=== PATIENT | female | born 1955 | race Caucasian/White ===

== ENCOUNTER → 2020-09-09 10:42 | Outpatient (BNVA) | payer SELFPAY | PROVIDERS: Family Provider Family Medicine; PCP Family Medicine; Visit Provider Emergency Medicine | DX: R11.0 Nausea (principal); U07.1 COVID-19; R05 Cough | CPT/HCPCS: 71046 ==

== ENCOUNTER → 2020-09-10 12:56 | Outpatient (BNVA) | payer OTHER, SELFPAY | PROVIDERS: Family Provider Family Medicine; PCP Family Medicine; Visit Provider Emergency Medicine | DX: U07.1 COVID-19 (principal); J18.9 Pneumonia, unspecified organism; Z20.822 Contact with and (suspected) exposure to COVID-19 | CPT/HCPCS: 71046 ==

== ENCOUNTER 2020-09-10 20:48 | Emergency (ER) | payer OTHER, SELFPAY ==
[2020-09-10 21:22] VITALS: BP 108/66; PULSE 78; RESP 18; TEMP 37.4; O2SAT 94; BMI 25.7
[2020-09-10 21:27] VITALS: BP 125/68; PULSE 64; RESP 16; O2SAT 93
--- NOTE | 2020-09-10 22:03 | ECG_ITS ---
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 Measurements Intervals [place] Rate: 66 P: 55 MN: 178 QRS: 11 QRSD: 79 T: 32 QT: 411 QTc: 433 Interpretive Statements SINUS RHYTHM No previous ECG available for comparison Electronically Signed On 09-11-2020 18:57:19 CDT by Iqra Balderas M.D. [id number]
[2020-09-10] MEDS: acetaminophen 325 mg Tablet 650 MG PO (22:13)
[2020-09-10 22:27] VITALS: O2SAT 98
[2020-09-10 22:28] VITALS: O2SAT 91; O2SAT 94
[2020-09-10 22:31] LABS: Basophils % 0.2 %; Hematocrit 36.5 % (37.0-47.0); Hemoglobin 11.7 g/dL (11.5-15.3); Lymphocytes # 0.6 10^3/uL (0.8-4.8); Lymphocytes % 10.6 %; Mean Corpuscular HGB Conc 32.1 g/dL (30.0-36.0); Mean Corpuscular Hemoglobin 28.1 pg (28.0-34.0); Mean Corpuscular Volume 87.7 fL (81-99); Mean Platelet Volume 10.5 fL (7.4-10.4); Monocytes # 0.3 10^3/uL (0.2-0.9); Monocytes % 6.5 %; Neutrophils # 4.25 10^3/uL (1.8-7.7); Neutrophils % 81.7 %; Nucleated Red Blood Cells % 0 %; Platelet Count 335 10^3/cmm (130-400); Red Blood Count 4.16 10^6/uL (4.1-5.3); Red Cell Distribution Width 14.1 % (12.1-15.1); White Blood Count 5.2 10^3/uL (4.0-10.0)
[2020-09-10 22:54] LABS: Troponin(5th) Baseline 7 ng/L (0-10)
[2020-09-10 22:55] LABS: Lactate (Lactic Acid level) 1.3 mmol/L (0.5-2.2)
[2020-09-10 23:13] LABS: Alanine Aminotransferase 27 U/L (0-33); Albumin Level 3.7 g/dL (3.5-5.2); Alkaline Phosphatase 112 IU/L (35-105); Anion Gap 16.5 (5-19); Aspartate Amino Transferase 28 U/L (0-32); Blood Urea Nitrogen 7 mg/dL (8-23); Calcium 8.4 mg/dL (8.5-10.5); Carbon Dioxide 23 mmol/L (22-29); Chloride 107 mmol/L (98-107); Globulin 2.4 g/dL (1.3-4.6); Glomerular Filtration Rate 160.7 mL/min (90-130); Glucose 126 mg/dL (65-115); Osmolality Calculated 294 mOsm/kg (285-295); Potassium 4.5 mmol/L (3.5-5.1); Sodium 142 mmol/L (136-145); Total Bilirubin 0.3 mg/dL (0.15-1.2); Total Protein 6.1 g/dL (6.6-8.7)
[2020-09-10 23:21] LABS: Add Urine Microscopic? NO; Charge for UA Resulting for Rev
[2020-09-10 23:33] LABS: Bilirubin Urine Neg (Negative); Blood Urine Neg (Negative); Glucose Urine UA Norm (Normal); Ketones Urine Negative (Negative); Leukocyte Esterase Urine Negative (Negative); Nitrate Urine Negative (Negative); Protein Urine Neg (Negative); Specific Gravity, Urine 1.005 (1.005-1.030); Urine Appearance Clear (CLEAR); Urine Color Yellow (Yellow); Urobilinogen Urine Norm (Negative); pH Urine 7 (5-7)
--- NOTE | 2020-09-11 00:31 | ED_ITS ---
HPI - COVID General: Chief Complaint: COVID symptoms Stated Complaint: COVID POSITIVE Time Seen by Provider: 09/10/20 21:44 Triage information: Has fever, cough or shortness of breath . Exposure to COVID + person last 14 days History of Present Illness: HPI Narrative: The patient is a 65-year-old female tested positive for Covid 10 days ago and this is her 11th day of symptoms. She comes to the ER from an urgent care center after she was seen there 2 days in a row and had a chest x-ray which appeared to be worsening. The note says she was given 1.5 L of fluids which improved her blood pressure and sent to the ER. Family immediately upon arrival says they would like oxygen and discharge. Patient and family have been using pulse oximeter at home which they noted a couple times were in the mid 80s on room air. Most of the time they say her oxygen saturation is in the mid 90s or slightly lower 90s. The patient does admit some mild shortness of breath and has slightly elevated temperature. She does have albuterol at home and has been given levofloxacin and prednisone as well by the urgent care facility however she is only taken 1 or 2 doses of these and they have not had a chance to start working. She is able to get around okay and admits that with her illness she is not eating and drinking as well but will try to do so in the future. complaint: known COVID positive Prior covid testing: yes, results known COVID 19 common symptoms: positive chills, non-productive cough, dyspnea, fatig ue, body aches, headache(s) and loss of sense of smell and/or taste; negative throat pain, nasal congestion or diarrhea COVID 19 other sytmptoms: negative chest pain Onset (ago): day(s) (11) Severity: moderate COVID Results: Nasal/Oral Coronavirus 2019 PCR Pending 09/10/20 12:55 09/10/20 Review of Systems General: Reports: 10 or more systems reviewed and unremarkable except in HPI and below Const: Reports: chills, body aches and fatigue Eyes: Denies: change in vision, blurry vision or eye redness ENMT: Denies: throat pain, swelling of lips/tongue, ear or mastoid pain or nasal congestion Card: Denies: chest pain, palpitations, irregular heart rhythm, edema, dyspnea on exertion or orthopnea Resp: Reports: dyspnea and non-productive cough GI: Denies: abdominal pain, diarrhea or GI cramping : Denies: flank pain, difficulty voiding, urinary frequency or urinary urgency Musc: Denies: neck pain, back pain, extremity pain, joint pain, joint redness, limited range of motion or muscle weakness Skin/Breast: Denies: rash, pruritus, erythema, skin pain or skin tenderness Neuro: Reports: headache(s) Psych: Denies: anxiety or depression Endo: Denies: polyuria All/Imm: Denies: urticaria, throat swelling or tongue swelling PFSH ED PFSH: Medical History COVID-19 Social History Smoking and tobacco status: never smoked Alcohol intake: never Female Reproductive History: Spontaneous abortions: No Physical Exam Const: COMMON NORMALS: no acute distress, average body habitus, patient oriented x3, no limitations, healthy appearing, alert and well nourished GENERAL APPEARANCE: cooperative, comfortable, well kempt and well developed ORIENTATION/CONSCIOUSNESS: Yes awake, Yes oriented to person, Yes oriented to place and Yes oriented to time HENMT: COMMON NORMALS: normocephalic, external ears normal and Normal external nose present HEAD & SCALP: normal to inspection and normocephalic NOSE: Normal external nose present EXTERNAL EAR: Yes external ears normal MOUTH: Normal oral and palatal mucosa present THROAT: posterior oropharynx normal Eye: COMMON NORMALS: Equal, round and reactive pupils present and EOMs intact bilaterally GENERAL EYE: appearance normal, both eyes and all related structures PUPIL: Yes Equal, round and reactive pupils present Neck/C-Spine: COMMON NORMALS: full ROM, no lymphadenopathy, no meningeal signs and no JVD GENERAL: Yes normal visual inspection Lymph: LYMPHATIC: no lymphadenopathy noted Chest: COMMONS NORMALS: normal inspection of the chest and normal palpation of entire chest wall Resp: COMMON NORMALS: normal respiratory effort, No retractions, No use of accessory muscles, clear to auscultation bilaterally and percussion normal EFFORT & INSPECTION: Yes able to speak in complete sentences AUSCULTATION: clear to auscultation bilaterally PERCUSSION: percussion normal Cardio: COMMON NORMALS: no JVD, regular rate, regular rhythm, S1 normal heart sound present, S2 normal heart sound present and Peripheral pulses 2+ throughout RATE: regular rate RHYTHM: regular rhythm HEART SOUNDS: S1 normal heart sound present and S2 normal heart sound present PERIPHERAL PULSES: Peripheral pulses 2+ throughout GI: COMMON NORMALS: Normal to inspection, nondistended, normoactive bowel sounds present, Soft to palpation, non-tender and no masses INSPECTION: Yes normal to inspection PALPATION: Yes Soft to palpation : COMMON NORMALS: Yes no CVA tenderness BLADDER/KIDNEY EXAM: Yes no CVA tenderness Back/Pelvis: COMMON NORMALS: no CVA tenderness, thoracic and lumbar spine normal to inspection, no thoracic nor lumbar tenderness and thoraco-lumbar ROM normal Extremity: COMMON NORMALS: normal to inspection, full ROM, capillary refill normal, no joint enlargement and no pedal edema GENERAL: Yes normal exam except as noted Neuro: COMMON NORMALS: patient oriented x3, CN's II-XII intact bilaterally, moves all extremities, no focal motor deficits, no sensory deficits noted and gait normal SENSORIUM/ORIENTATION: Yes alert, Yes oriented to person, Yes oriented to place and Yes oriented to time MENINGEAL SIGNS: Yes no meningeal signs Psych: COMMON NORMALS: mental status grossly normal, Normal thought process present, cooperative, normal affect and speech normal APPEARANCE: Yes well kempt ATTITUDE: Yes calm SPEECH: Yes normal speech THOUGHT PROCESS: Normal thought process present Skin: COMMON NORMALS: no rashes or lesions noted GENERAL SKIN EXAM: no rashes or lesions noted Course Vital Signs: Vital signs: Vital Signs Temperature 99.3 F 09/10/20 21:22 Pulse Rate 64 09/10/20 21:27 Respiratory Rate 16 09/10/20 21:27 Blood Pressure 125/68 09/10/20 21:27 Pulse Oximetry 94 09/10/20 22:28 MDM - COVID MDM Narrative: Medical decision making narrative: The patient is on her 11th day of symptoms and tested positive for Covid 10 days ago. She is doing well and satting 94% on room air. Home oxygen test she did not dip on her oxygen saturation however family did report that she had a couple episodes of satting in the mid 80s at home so I did order home oxygen for her. To wear 2 L [id number]. Family said they do not want her to wear it at all times of she does not need it. I recommended they check her pulse ox frequently and if it is 92 I recommended wearing oxygen if it is lower than that also wear oxygen. She should definitely wear it to sleep at night. Activity she should also definitely wear it. If she is resting and satting in the mid to upper 90s she may remove the oxygen. If she is ever short of breath or her symptoms worsen at any time she is to return to the ER. Follow-up with primary care physician in a couple days. Lab Data: Labs: Lab Results 09/10/20 09/10/20 09/10/20 Range/Units 22:22 22:22 22:22 WBC 5.2 (4.0-10.0) 10^3/ uL RBC 4.16 (4.1-5.3) 10^6/u L Hgb 11.7 (11.5-15.3) g/dL Hct 36.5 L (37.0-47.0) % MCV 87.7 (81-99) fL MCH 28.1 (28.0-34.0) pg MCHC 32.1 (30.0-36.0) g/dL RDW 14.1 (12.1-15.1) % Plt Count 335 (130-400) 10^3/c mm MPV 10.5 H (7.4-10.4) fL Neut % (Auto) 81.7 % Lymph % (Auto) 10.6 % [place] % (Auto) 6.5 % Eos % (Auto) 0.0 % Baso % (Auto) 0.2 % Neut # (Auto) 4.25 (1.8-7.7) 10^3/u L Lymph # (Auto) 0.6 L (0.8-4.8) 10^3/u L [place] # (Auto) 0.3 (0.2-0.9) 10^3/u L Eos # (Auto) 0.0 (0.0-0.8) 10^3/u L Baso # (Auto) 0.0 (0.0-0.1) 10^3/u L Nucleated RBC % (a uto) 0 % Nucleated RBCs # 0.0 /100WBC Sodium 142 (136-145) mmol/L Potassium 4.5 (3.5-5.1) mmol/L Chloride 107 (98-107) mmol/L Carbon Dioxide 23 (22-29) mmol/L Anion Gap 16.5 (5-19) BUN 7 L (8-23) mg/dL Creatinine 0.4 L (0.5-0.9) mg/dL GFR Calculation 160.7 H (90-130) mL/min Glucose 126 H (65-115) mg/dL Calculated Osmolal ity 294 (285-295) mOsm/k g Lactate 1.3 (0.5-2.2) mmol/L Calcium 8.4 L (8.5-10.5) mg/dL Total Bilirubin 0.3 (0.15-1.2) mg/dL AST 28 (0-32) U/L ALT 27 (0-33) U/L Alkaline Phosphata se 112 H (35-105) IU/L Troponin T Baselin e (0-10) ng/L Total Protein 6.1 L (6.6-8.7) g/dL Albumin 3.7 (3.5-5.2) g/dL Globulin 2.4 (1.3-4.6) g/dL Urine Color (Yellow) Urine Appearance (CLEAR) Urine pH (5-7) Ur Specific Gravit y (1.005-1.030) Urine Protein (Negative) Urine Glucose (UA) (Normal) Urine Ketones (Negative) Urine Blood (Negative) Urine Nitrate (Negative) Urine Bilirubin (Negative) Urine Urobilinogen (Negative) mg/dL Ur Leukocyte [place] (Negative) 09/10/20 09/10/20 Range/Units 22:22 23:11 WBC (4.0-10.0) 10^3/ uL RBC (4.1-5.3) 10^6/u L Hgb (11.5-15.3) g/dL Hct (37.0-47.0) % MCV (81-99) fL MCH (28.0-34.0) pg MCHC (30.0-36.0) g/dL RDW (12.1-15.1) % Plt Count (130-400) 10^3/c mm MPV (7.4-10.4) fL Neut % (Auto) % Lymph % (Auto) % [place] % (Auto) % Eos % (Auto) % Baso % (Auto) % Neut # (Auto) (1.8-7.7) 10^3/u L Lymph # (Auto) (0.8-4.8) 10^3/u L [place] # (Auto) (0.2-0.9) 10^3/u L Eos # (Auto) (0.0-0.8) 10^3/u L Baso # (Auto) (0.0-0.1) 10^3/u L Nucleated RBC % (a uto) % Nucleated RBCs # /100WBC Sodium (136-145) mmol/L Potassium (3.5-5.1) mmol/L Chloride (98-107) mmol/L Carbon Dioxide (22-29) mmol/L Anion Gap (5-19) BUN (8-23) mg/dL Creatinine (0.5-0.9) mg/dL GFR Calculation (90-130) mL/min Glucose (65-115) mg/dL Calculated Osmolal ity (285-295) mOsm/k g Lactate (0.5-2.2) mmol/L Calcium (8.5-10.5) mg/dL Total Bilirubin (0.15-1.2) mg/dL AST (0-32) U/L ALT (0-33) U/L Alkaline Phosphata se (35-105) IU/L Troponin T Baselin e 7 (0-10) ng/L Total Protein (6.6-8.7) g/dL Albumin (3.5-5.2) g/dL Globulin (1.3-4.6) g/dL Urine Color Yellow (Yellow) Urine Appearance Clear (CLEAR) Urine pH 7 (5-7) Ur Specific Gravit y 1.005 (1.005-1.030) Urine Protein Neg (Negative) Urine Glucose (UA) Norm (Normal) Urine Ketones Negative (Negative) Urine Blood Neg (Negative) Urine Nitrate Negative (Negative) Urine Bilirubin Neg (Negative) Urine Urobilinogen Norm (Negative) mg/dL Ur Leukocyte [place] Negative (Negative) COVID Results: Nasal/Oral Coronavirus 2019 PCR Pending 09/10/20 12:55 09/10/20 Discharge Plan Discharge Patient Disposition: Home Clinical Impression: COVID-19 Condition: Stable Prescriptions: No Action sertraline [Zoloft] 25 mg tablet 25 mg PO DAILY RF: 0 omeprazole 20 mg capsule,delayed release(DR/EC) 20 mg PO DAILY RF: 0 yblryjctcvtflyl-galqidbdv-BG [Bromfed DM] 2-30-10 mg/5 mL syrup 7.5 ml PO Q6H PRN (Reason: cold symptoms) Qty: 160 RF: 0 prednisone 10 mg tablet 30 mg PO DAILY 5 Days Qty: 15 RF: 0 ondansetron 4 mg tablet,disintegrating 4 mg PO Q6H PRN (Reason: nausea and vomiting) Qty: 12 RF: 0 levofloxacin 750 mg tablet 750 mg PO DAILY 10 Days Qty: 10 RF: 0 albuterol sulfate 2.5 mg /3 mL (0.083 %) solution for nebulization 2.5 mg inhalation Q6H Qty: 150 RF: 0 Discharge Orders: Discharge ED (Routine); Ordered 09/11/20 Ordered By: Genaro Leal Other Ambulatory Orders: DME: Oxygen (Order) Location: None Selected Ordered By: Genaro Leal Referrals: Maritza Serrano MD [Primary Care Provider] - Discharge Diet: Advance as tolerated Discharge Activity: Resume usual activity Patient Instructions: Opioid Safety, Upper Respiratory Infection - Adult Activity Restrictions/Additional Instructions: You have been suffering from Covid 19 virus infection and have had some episodes of hypoxia at home. Here your oxygen saturation has been reasonable though you may need oxygen at home. We are sending you home with an oxygen concentrator and should be worn at 2 L. Please use your finger pulse oximeter at home to monitor your oxygen saturation and try to keep it above 92. Make sure you wear it with any activity and during sleeping. If your oxygen saturation drops to the 80s or she feels short of breath or is working hard to breathe or has any other worrisome symptoms please return to the ER for further evaluation. Otherwise follow-up with primary care physician in a couple days to monitor improvement of her symptoms. Coding Level of Care Code ED National Sales Representative for [employer]
--- NOTE | 2020-09-12 11:34 | DCPLANNER ---
trucking manager had message to speak with patient about a telehealth visit. trucking manager called phone number [phone], unable to speak with patient at this time, a voicemail was left patient to return trimming caser phone call. Patient did return trimming caser phone call, she stated that she is feeling alright at this time and does not want to have a telehealth visit scheduled at this time. Patient stated that she would schedule an appointment if she felt that she needed one.
== END 2020-09-11 00:20 | disposition home or self-care (01) ==
PROVIDERS: Emergency Provider Family Medicine; PCP Family Medicine
DX: U07.1 COVID-19 (principal)
CPT/HCPCS: 80053; 81003; 83605; 84484; 85025; 87635; 93005; 99283

== ENCOUNTER → 2022-02-26 11:12 | Outpatient (BNVA) | payer MEDICARE, SELFPAY | PROVIDERS: PCP Family Medicine; Visit Provider Nurse Practitioner Family | DX: R05.9 Cough, unspecified (principal) | CPT/HCPCS: 87400 ==

== ENCOUNTER → 2022-03-11 10:53 | Outpatient (BNVA) | payer MEDICARE, SELFPAY | PROVIDERS: PCP Family Medicine; Visit Provider Nurse Practitioner Family | DX: R10.9 Unspecified abdominal pain (principal); R68.89 Other general symptoms and signs; I95.9 Hypotension, unspecified | CPT/HCPCS: 80053; 81000; 85025; 87086; 87400; 87426 ==

== ENCOUNTER 2022-03-12 19:15 | Emergency (ER) | payer MEDICARE, SELFPAY ==
[2022-03-12 19:21] VITALS: BP 103/71; PULSE 97; RESP 19; TEMP 36.8; O2SAT 99; BMI 27.3
--- NOTE | 2022-03-12 19:31 | W.ED.GENADLT ---
Documented by User: HEIKE Smith 03/12/22 22:53 HPI - General Adult General: Chief complaint: General Medical Stated complaint: sent by PCP N/V, left groin pain Time Seen by Provider: 03/12/22 19:33 History of Present Illness: Patient is in today for body aches, abdominal pain. Patient reports that she has been sick approximately a week and a half. She reports it started with the crud. She reports that she tested negative for flu and COVID. She reports that she has had body aches since that time. She reports fever initially but that has not been recent. She denies ever having urinary symptoms. She reports that she went to her PCP on Friday and was diagnosed with a right-sided ear infection. She reports that she was started on Cipro antibiotic. She reports that her blood pressure was low in her PCP office but she has a tendency to run a little bit low. Her PCP wanted to send her to the ER at that time however she did not want to go. She states that today she started having worse abdominal and back pain with a left groin pain. She continues to deny urinary symptoms. She reports her last bowel was yesterday and normal. She has been very nauseated but denies vomiting. Associated symptoms: Reports nausea; Deny chest pain, dyspnea, headache(s), palpitations or vomiting Review of Systems Const: Reports: chills and body aches; Denies: fever(s) ENMT: Reports: ear or mastoid pain (Right-sided ear pain) and tinnitus Card: Denies: chest pain or palpitations Resp: Denies: dyspnea, productive cough or non-productive cough GI: Reports: abdominal pain and nausea; Denies: vomiting, diarrhea or constipation Musc: Reports: other (Extreme body aches) Neuro: Reports: dizziness (States when her blood pressure is low or she moves her head quick); Denies: headache(s) or numbness in extremities PFSH ED PFSH: Medical History COVID-19 Surgical History No pertinent past surgical history Social History Smoking and tobacco status: former smoker Alcohol intake: never Female Reproductive History: Spontaneous abortions: No Physical Exam Const: COMMON NORMALS: no acute distress, patient oriented x3 and alert HENMT: TYMPANIC MEMBRANE: TM normal on the left and TM abnormal TM laterality: right Details: bulging and erythematous THROAT: posterior oropharynx normal and uvula midline Neck/C-Spine: COMMON NORMALS: no JVD Resp: COMMON NORMALS: normal respiratory effort, No use of accessory muscles and clear to auscultation bilaterally AUSCULTATION: clear to auscultation bilaterally Cardio: COMMON NORMALS: no JVD, regular rate, regular rhythm, S1 normal heart sound present and S2 normal heart sound present RATE: regular rate RHYTHM: regular rhythm HEART SOUNDS: S1 normal heart sound present and S2 normal heart sound present GI: COMMON NORMALS: Soft to palpation INSPECTION: Yes normal to inspection AUSCULTATION: Yes normoactive bowel sounds PALPATION: Yes Soft to palpation, Yes Tenderness to palpation present (GI) Details: RLQ and No Guarding due to palpation present (GI) : BLADDER/KIDNEY EXAM: Yes CVA tenderness (Mild right side) on the right EXTERNAL FEMALE EXAM: Yes Inguinal lymphadenopathy (Left-sided inguinal tenderness and slight lymphadenopathy) Back/Pelvis: GENERAL BACK: Yes CVA tenderness (Mild right side) Neuro: COMMON NORMALS: patient oriented x3, moves all extremities and no focal motor deficits SENSORIUM/ORIENTATION: Yes alert Course Vital Signs: Vital signs: Vital Signs Temperature 98.2 F 03/12/22 19:21 Pulse Rate 78 03/12/22 22:57 Respiratory Rate 18 03/12/22 22:57 Blood Pressure 127/85 03/12/22 22:57 Pulse Oximetry 97 03/12/22 22:57 Oxygen Delivery Me thod 03/12/22 19:21 MDM - General Adult Medical Decision Making Reviewed provider's note from yesterday diagnosed her with pyelonephritis, otitis media right ear, hypotension. Urine from yesterday only showed trace leuks with no nitrites. White blood cell count was normal yesterday. Patient vital signs are hypotensive systolic of 80s. Vital signs are stable upon arrival to the ER today. White blood cell count is normal. UA shows leuks negative nitrites negative blood. Differentials include renal stone, UTI, appendicitis, constipation Discussed results of labs and imaging with patient and daughter. I do not see any evidence of sepsis, renal stone. With a normal white blood cell count and no guarding or rebound tenderness to the right lower quadrant abdomen I have less suspicion for Appendicitis. I discussed this with the patient and her daughter and advised that without CT I cannot completely rule out an appendicitis however at this time it is likely that the stool seen on her KUB is the cause of her right lower quadrant abdominal pain. Patient then advised that she has a history of off-and-on constipation. We had a lengthy discussion about bowel management at home and increasing dietary fiber and water intake. Continue antibiotic as prescribed by the PCP previously. We did discuss the potential for Cipro to cause tendinitis and joint pain. Patient has complained of severe body aches but this was ongoing before she started the Cipro medication. Advised her that should her symptoms get worse she needs to be seen. We will discharge patient home in stable condition reporting that she is feeling significantly improved. Encouraged her to do [id number] treatment for constipation and encouraged dietary modifications. Continue follow-up with primary care provider. Return to the ER as needed for any new or worsening symptoms including, but not limited to, increasing or changing abdominal pain, inability to have a bowel movement despite kcwz-wpx-ngaiaub laxatives, fever development, inability to hold down p.o. liquids. Patient and daughter agreeable with plan of care and discharge. Lab Data 03/12/22 19:45 03/12/22 19:45 Radiology Impressions KUB X-Ray 03/12/22 20:29 IMPRESSION: 1. Negative for urinary calculus. 2. Constipation without bowel obstruction. Laboratory Results WBC 6.9 10^3/uL (4.0-10.0) 03/12/22 19:45 RBC 4.84 10^6/uL (4.1-5.3) 03/12/22 19:45 Hgb 13.7 g/dL (11.5-15.3) 03/12/22 19:45 Hct 43.1 % (37.0-47.0) 03/12/22 19:45 MCV 89.0 fl (81-99) 03/12/22 19:45 MCH 28.3 pg (28.0-34.0) 03/12/22 19:45 MCHC 31.8 g/dL (30.0-36.0) 03/12/22 19:45 RDW 13.5 % (12.1-15.1) 03/12/22 19:45 Plt Count 265 10^3/cmm (130-400) 03/12/22 19:45 MPV 11.3 fL (7.4-10.4) H 03/12/22 19:45 Neut % (Auto) 58.3 % 03/12/22 19:45 Lymph % (Auto) 33.4 % 03/12/22 19:45 Falls % (Auto) 5.4 % 03/12/22 19:45 Eos % (Auto) 2.0 % 03/12/22 19:45 Baso % (Auto) 0.6 % 03/12/22 19:45 Neut # (Auto) 3.99 10^3/uL (1.8-7.7) 03/12/22 19:45 Lymph # (Auto) 2.3 10^3/uL (0.8-4.8) 03/12/22 19:45 Falls # (Auto) 0.4 10^3/uL (0.2-0.9) 03/12/22 19:45 Eos # (Auto) 0.1 10^3/uL (0.0-0.8) 03/12/22 19:45 Baso # (Auto) 0.0 10^3/uL (0.0-0.1) 03/12/22 19:45 Nucleated RBC % (auto) 0 % 03/12/22 19:45 Nucleated RBCs # 0.0 /100WBC 03/12/22 19:45 Sodium 138 mmol/L (136-145) 03/12/22 19:45 Potassium 4.4 mmol/L (3.5-5.1) 03/12/22 19:45 Chloride 98 mmol/L (98-107) 03/12/22 19:45 Carbon Dioxide 28 mmol/L (22-29) 03/12/22 19:45 Anion Gap 16.4 (5-19) 03/12/22 19:45 BUN 17 mg/dL (8-23) 03/12/22 19:45 Creatinine 0.7 mg/dL (0.5-0.9) 03/12/22 19:45 GFR Calculation 84.0 mL/min (90-130) L 03/12/22 19:45 Glucose 117 mg/dL (65-115) H 03/12/22 19:45 Calculated Osmolality 289 mOsm/kg (285-295) 03/12/22 19:45 Lactic Acid 1.6 mmol/L (0.5-2.2) 03/12/22 19:45 Calcium 9.8 mg/dL (8.5-10.5) 03/12/22 19:45 Total Bilirubin 0.2 mg/dL (0.15-1.2) 03/12/22 19:45 AST 16 U/L (0-32) 03/12/22 19:45 ALT 13 U/L (0-33) 03/12/22 19:45 Alkaline Phosphatase 89 U/L (35-105) 03/12/22 19:45 Total Protein 7.7 g/dL (6.6-8.7) 03/12/22 19:45 Albumin 4.5 g/dL (3.5-5.2) 03/12/22 19:45 Globulin 3.2 g/dL (1.3-4.6) 03/12/22 19:45 Urine Color Light yellow (Yellow) 03/12/22 19:45 Urine Appearance Clear (CLEAR) 03/12/22 19:45 Urine pH 6 (5-7) 03/12/22 19:45 Ur Specific [place] 1.010 (1.005-1.030) 03/12/22 19:45 Urine Protein Neg (Negative) 03/12/22 19:45 Urine Glucose (UA) Norm (Normal) 03/12/22 19:45 Urine Ketones Negative (Negative) 03/12/22 19:45 Urine Blood Neg (Negative) 03/12/22 19:45 Urine Nitrate Negative (Negative) 03/12/22 19:45 Urine Bilirubin Neg (Negative) 03/12/22 19:45 Urine Urobilinogen Norm mg/dL (Negative) 03/12/22 19:45 Ur Leukocyte Esterase 1+ (Negative) H 03/12/22 19:45 Urine RBC 0-4 /hpf (0-2) H 03/12/22 19:45 Urine WBC 0-4 /hpf (0-5) H 03/12/22 19:45 Ur Squamous Epith Cells 0-4 /hpf (0-5) H 03/12/22 19:45 Amorphous Sediment Not Reportable 03/12/22 19:45 Urine Bacteria Trace /hpf (NONE) 03/12/22 19:45 Discharge Plan Discharge Patient Disposition: Home Clinical Impression: Abdominal pain, Constipation Condition: Stable Prescriptions: New ondansetron 4 mg tablet,disintegrating 4 mg PO Q8H PRN (Reason: nausea and vomiting) 3 Days Qty: 9 0RF No Action sertraline [Zoloft] 25 mg tablet 25 mg PO DAILY omeprazole 20 mg capsule,delayed release(DR/EC) 20 mg PO DAILY olopatadine [Pataday Twice Daily Relief] 0.1 % drops 1 drp ophthalmic (eye) BID Qty: 5 0RF Rx Instructions: separate doses by at least 6-8 hours hydroxyzine pamoate [Vistaril] 50 mg capsule 50 mg PO Q6H PRN (Reason: itching) Qty: 30 0RF dapsone 5 % gel 1 applic topical BID Qty: 60 0RF Rx Instructions: rub in gently and completely triamcinolone acetonide 0.1 % cream 1 applic topical BID Qty: 15 1RF fluticasone propionate 50 mcg/actuation spray,suspension 1 spray intranasal DAILY PRN (Reason: allergy symptoms) Qty: 16 0RF Rx Instructions: administer into each nostril fluconazole [Diflucan] 150 mg tablet 150 mg PO DAILY Qty: 2 0RF Rx Instructions: Take 1 tablet on day 1 and the second tablet 3 days later. ciprofloxacin HCl [Cipro] 500 mg tablet 500 mg PO BID 10 Days Qty: 20 0RF Zyrtec 10 mg capsule 10 mg PO DAILY PRN clobetasol 0.05 % ointment 1 applic topical BID 14 Days Qty: 45 1RF Rx Instructions: Apply to affected area no more than 2 weeks per month, not for face or skin folds metronidazole 0.75 % gel 1 applic topical BID Qty: 45 6RF dextromethorphan polistirex 30 mg/5 mL suspension,extended rel 12 hr 10 ml PO Q12H PRN (Reason: cough) Qty: 89 0RF Discharge Orders: Discharge ED (Routine); Ordered 03/12/22 Ordered By: Teressa Mckee Referrals: Maritza Serrano MD [Primary Care Provider] - Discharge Diet: Usual diet Discharge Activity: Resume usual activity Patient Instructions: Constipation (ED), Abdominal Pain (ED) Activity Restrictions/Additional Instructions: Make sure that you are staying well-hydrated at home. Use Zofran as needed as prescribed to help with nausea. Continue antibiotic as previously prescribed by primary care provider. I recommend cxzx-xru-kvlbmtn laxative to help evacuate stool and then increasing fiber and water in your diet to help prevent constipation. Follow-up with your primary care provider. Return to the ER as needed for new or worsening symptoms including, but not limited to, worsening abdominal pain, difficulty urinating or painful urination, fever, inability to keep down oral liquids, inability to have a bowel movement despite gzan-bms-wcujefa laxative. Coding Level of Care Code ED Healthcare Administrator for Chg Fwd Exam Comprehensive Documented by User: Reinaldo Michelle DO 03/14/22 06:20 HPI - General Adult General: Chief complaint: General Medical Stated complaint: sent by PCP N/V, left groin pain Time Seen by Provider: 03/12/22 19:33 [facility] ED PFSH: Medical History COVID-19 Surgical History No pertinent past surgical history Social History Smoking and tobacco status: former smoker Alcohol intake: never Course Vital Signs: Vital signs: Vital Signs Temperature 98.2 F 03/12/22 19:21 Pulse Rate 78 03/12/22 22:57 Respiratory Rate 18 03/12/22 22:57 Blood Pressure 127/85 03/12/22 22:57 Pulse Oximetry 97 03/12/22 22:57 Oxygen Delivery Me thod 03/12/22 19:21 MDM - General Adult Medical Decision Making Reviewed provider's note from yesterday diagnosed her with pyelonephritis, otitis media right ear, hypotension. Urine from yesterday only showed trace leuks with no nitrites. White blood cell count was normal yesterday. Patient vital signs are hypotensive systolic of 80s. Vital signs are stable upon arrival to the ER today. White blood cell count is normal. UA shows leuks negative nitrites negative blood. Differentials include renal stone, UTI, appendicitis, constipation Discussed results of labs and imaging with patient and daughter. I do not see any evidence of sepsis, renal stone. With a normal white blood cell count and no guarding or rebound tenderness to the right lower quadrant abdomen I have less suspicion for Appendicitis. I discussed this with the patient and her daughter and advised that without CT I cannot completely rule out an appendicitis however at this time it is likely that the stool seen on her KUB is the cause of her right lower quadrant abdominal pain. Patient then advised that she has a history of off-and-on constipation. We had a lengthy discussion about bowel management at home and increasing dietary fiber and water intake. Continue antibiotic as prescribed by the PCP previously. We did discuss the potential for Cipro to cause tendinitis and joint pain. Patient has complained of severe body aches but this was ongoing before she started the Cipro medication. Advised her that should her symptoms get worse she needs to be seen. We will discharge patient home in stable condition reporting that she is feeling significantly improved. Encouraged her to do pokm-njp-vzuqhij treatment for constipation and encouraged dietary modifications. Continue follow-up with primary care provider. Return to the ER as needed for any new or worsening symptoms including, but not limited to, increasing or changing abdominal pain, inability to have a bowel movement despite tdmr-anl-nnearoy laxatives, fever development, inability to hold down p.o. liquids. Patient and daughter agreeable with plan of care and discharge. Chart reviewed and patient discussed with midlevel. Agree with assessment and plan. Lab Data 03/12/22 19:45 03/12/22 19:45 Radiology Impressions KUB X-Ray 03/12/22 20:29 IMPRESSION: 1. Negative for urinary calculus. 2. Constipation without bowel obstruction. Laboratory Results WBC 6.9 10^3/uL (4.0-10.0) 03/12/22 19:45 RBC 4.84 10^6/uL (4.1-5.3) 03/12/22 19:45 Hgb 13.7 g/dL (11.5-15.3) 03/12/22 19:45 Hct 43.1 % (37.0-47.0) 03/12/22 19:45 MCV 89.0 fl (81-99) 03/12/22 19:45 MCH 28.3 pg (28.0-34.0) 03/12/22 19:45 MCHC 31.8 g/dL (30.0-36.0) 03/12/22 19:45 RDW 13.5 % (12.1-15.1) 03/12/22 19:45 Plt Count 265 10^3/cmm (130-400) 03/12/22 19:45 MPV 11.3 fL (7.4-10.4) H 03/12/22 19:45 Neut % (Auto) 58.3 % 03/12/22 19:45 Lymph % (Auto) 33.4 % 03/12/22 19:45 Falls % (Auto) 5.4 % 03/12/22 19:45 Eos % (Auto) 2.0 % 03/12/22 19:45 Baso % (Auto) 0.6 % 03/12/22 19:45 Neut # (Auto) 3.99 10^3/uL (1.8-7.7) 03/12/22 19:45 Lymph # (Auto) 2.3 10^3/uL (0.8-4.8) 03/12/22 19:45 Falls # (Auto) 0.4 10^3/uL (0.2-0.9) 03/12/22 19:45 Eos # (Auto) 0.1 10^3/uL (0.0-0.8) 03/12/22 19:45 Baso # (Auto) 0.0 10^3/uL (0.0-0.1) 03/12/22 19:45 Nucleated RBC % (auto) 0 % 03/12/22 19:45 Nucleated RBCs # 0.0 /100WBC 03/12/22 19:45 Sodium 138 mmol/L (136-145) 03/12/22 19:45 Potassium 4.4 mmol/L (3.5-5.1) 03/12/22 19:45 Chloride 98 mmol/L (98-107) 03/12/22 19:45 Carbon Dioxide 28 mmol/L (22-29) 03/12/22 19:45 Anion Gap 16.4 (5-19) 03/12/22 19:45 BUN 17 mg/dL (8-23) 03/12/22 19:45 Creatinine 0.7 mg/dL (0.5-0.9) 03/12/22 19:45 GFR Calculation 84.0 mL/min (90-130) L 03/12/22 19:45 Glucose 117 mg/dL (65-115) H 03/12/22 19:45 Calculated Osmolality 289 mOsm/kg (285-295) 03/12/22 19:45 Lactic Acid 1.6 mmol/L (0.5-2.2) 03/12/22 19:45 Calcium 9.8 mg/dL (8.5-10.5) 03/12/22 19:45 Total Bilirubin 0.2 mg/dL (0.15-1.2) 03/12/22 19:45 AST 16 U/L (0-32) 03/12/22 19:45 ALT 13 U/L (0-33) 03/12/22 19:45 Alkaline Phosphatase 89 U/L (35-105) 03/12/22 19:45 Total Protein 7.7 g/dL (6.6-8.7) 03/12/22 19:45 Albumin 4.5 g/dL (3.5-5.2) 03/12/22 19:45 Globulin 3.2 g/dL (1.3-4.6) 03/12/22 19:45 Urine Color Light yellow (Yellow) 03/12/22 19:45 Urine Appearance Clear (CLEAR) 03/12/22 19:45 Urine pH 6 (5-7) 03/12/22 19:45 Ur Specific [place] 1.010 (1.005-1.030) 03/12/22 19:45 Urine Protein Neg (Negative) 03/12/22 19:45 Urine Glucose (UA) Norm (Normal) 03/12/22 19:45 Urine Ketones Negative (Negative) 03/12/22 19:45 Urine Blood Neg (Negative) 03/12/22 19:45 Urine Nitrate Negative (Negative) 03/12/22 19:45 Urine Bilirubin Neg (Negative) 03/12/22 19:45 Urine Urobilinogen Norm mg/dL (Negative) 03/12/22 19:45 Ur Leukocyte Esterase 1+ (Negative) H 03/12/22 19:45 Urine RBC 0-4 /hpf (0-2) H 03/12/22 19:45 Urine WBC 0-4 /hpf (0-5) H 03/12/22 19:45 Ur Squamous Epith Cells 0-4 /hpf (0-5) H 03/12/22 19:45 Amorphous Sediment Not Reportable 03/12/22 19:45 Urine Bacteria Trace /hpf (NONE) 03/12/22 19:45 Discharge Plan Discharge Patient Disposition: Home Clinical Impression: Abdominal pain, Constipation Condition: Stable Prescriptions: New ondansetron 4 mg tablet,disintegrating 4 mg PO Q8H PRN (Reason: nausea and vomiting) 3 Days Qty: 9 0RF No Action sertraline [Zoloft] 25 mg tablet 25 mg PO DAILY omeprazole 20 mg capsule,delayed release(DR/EC) 20 mg PO DAILY olopatadine [Pataday Twice Daily Relief] 0.1 % drops 1 drp ophthalmic (eye) BID Qty: 5 0RF Rx Instructions: separate doses by at least 6-8 hours hydroxyzine pamoate [Vistaril] 50 mg capsule 50 mg PO Q6H PRN (Reason: itching) Qty: 30 0RF dapsone 5 % gel 1 applic topical BID Qty: 60 0RF Rx Instructions: rub in gently and completely triamcinolone acetonide 0.1 % cream 1 applic topical BID Qty: 15 1RF fluticasone propionate 50 mcg/actuation spray,suspension 1 spray intranasal DAILY PRN (Reason: allergy symptoms) Qty: 16 0RF Rx Instructions: administer into each nostril fluconazole [Diflucan] 150 mg tablet 150 mg PO DAILY Qty: 2 0RF Rx Instructions: Take 1 tablet on day 1 and the second tablet 3 days later. ciprofloxacin HCl [Cipro] 500 mg tablet 500 mg PO BID 10 Days Qty: 20 0RF Zyrtec 10 mg capsule 10 mg PO DAILY PRN clobetasol 0.05 % ointment 1 applic topical BID 14 Days Qty: 45 1RF Rx Instructions: Apply to affected area no more than 2 weeks per month, not for face or skin folds metronidazole 0.75 % gel 1 applic topical BID Qty: 45 6RF dextromethorphan polistirex 30 mg/5 mL suspension,extended rel 12 hr 10 ml PO Q12H PRN (Reason: cough) Qty: 89 0RF Discharge Orders: Discharge ED (Routine); Ordered 03/12/22 Ordered By: Teressa Mckee Referrals: Maritza Serrano MD [Primary Care Provider] - Discharge Diet: Usual diet Discharge Activity: Resume usual activity Patient Instructions: Constipation (ED), Abdominal Pain (ED) Activity Restrictions/Additional Instructions: Make sure that you are staying well-hydrated at home. Use Zofran as needed as prescribed to help with nausea. Continue antibiotic as previously prescribed by primary care provider. I recommend kfod-qek-cwrkmnm laxative to help evacuate stool and then increasing fiber and water in your diet to help prevent constipation. Follow-up with your primary care provider. Return to the ER as needed for new or worsening symptoms including, but not limited to, worsening abdominal pain, difficulty urinating or painful urination, fever, inability to keep down oral liquids, inability to have a bowel movement despite lvon-kdm-qwydstx laxative. Coding Level of Care Code ED Healthcare Administrator for Chg Fwd Exam Comprehensive
[2022-03-12 19:54] LABS: Basophils % 0.6 %; Eosinophils # 0.1 10^3/uL (0.0-0.8); Hematocrit 43.1 % (37.0-47.0); Hemoglobin 13.7 g/dL (11.5-15.3); Lymphocytes # 2.3 10^3/uL (0.8-4.8); Lymphocytes % 33.4 %; Mean Corpuscular HGB Conc 31.8 g/dL (30.0-36.0); Mean Corpuscular Hemoglobin 28.3 pg (28.0-34.0); Mean Platelet Volume 11.3 fL (7.4-10.4); Monocytes # 0.4 10^3/uL (0.2-0.9); Monocytes % 5.4 %; Neutrophils # 3.99 10^3/uL (1.8-7.7); Neutrophils % 58.3 %; Nucleated Red Blood Cells % 0 %; Platelet Count 265 10^3/cmm (130-400); Red Blood Count 4.84 10^6/uL (4.1-5.3); Red Cell Distribution Width 13.5 % (12.1-15.1); White Blood Count 6.9 10^3/uL (4.0-10.0)
[2022-03-12 20:06] LABS: Add Urine Microscopic? YES; Bilirubin Urine Neg (Negative); Blood Urine Neg (Negative); Glucose Urine UA Norm (Normal); Ketones Urine Negative (Negative); Leukocyte Esterase Urine 1+ (Negative); Nitrate Urine Negative (Negative); Protein Urine Neg (Negative); Urine Appearance Clear (CLEAR); Urine Color Light yellow (Yellow); Urobilinogen Urine Norm (Negative); pH Urine 6 (5-7)
[2022-03-12 20:07] LABS: Add Urine Culture? No; Bacteria Urine TRACE /hpf; RBC Urine 0-4 /hpf (0-2); Squamous Epithelial Cell Urine 0-4 /hpf (0-5); WBC Urine 0-4 /hpf (0-5)
[2022-03-12 20:12] LABS: Lactic Sepsis W/Reflex 1.6 mmol/L (0.5-2.2)
[2022-03-12 20:25] LABS: Alanine Aminotransferase 13 U/L (0-33); Albumin Level 4.5 g/dL (3.5-5.2); Alkaline Phosphatase 89 U/L (35-105); Anion Gap 16.4 (5-19); Aspartate Amino Transferase 16 U/L (0-32); Blood Urea Nitrogen 17 mg/dL (8-23); Calcium 9.8 mg/dL (8.5-10.5); Carbon Dioxide 28 mmol/L (22-29); Chloride 98 mmol/L (98-107); Globulin 3.2 g/dL (1.3-4.6); Glucose 117 mg/dL (65-115); Osmolality Calculated 289 mOsm/kg (285-295); Potassium 4.4 mmol/L (3.5-5.1); Sodium 138 mmol/L (136-145); Total Bilirubin 0.2 mg/dL (0.15-1.2); Total Protein 7.7 g/dL (6.6-8.7)
--- NOTE | 2022-03-12 20:29 | XRR_ITS ---
PROCEDURE INFORMATION: Exam: XR Abdomen Exam date and time: 03/12/2022 8:40 PM Age: 66 years old Clinical indication: Abdominal pain; Right; Prior surgery; Patient HX: C/O RT flank pain; Additional info: Flank pain, abd pain TECHNIQUE: Imaging protocol: Radiologic exam of the abdomen. Views: Frontal supine view of the abdomen. 1 View. COMPARISON: CR XR chest 2V* [id number] 09/10/2020 1:51 PM FINDINGS: Gastrointestinal tract: Constipation without bowel obstruction. Bones/joints: Unremarkable. XR/XR KUB [id number] IMPRESSION: 1. Negative for urinary calculus. 2. Constipation without bowel obstruction.
[2022-03-12] MEDS: ondansetron 2 mg/ML SDV 2 mL 4 MG IVP (21:49)
[2022-03-12] MEDS: sodium chloride 0.9% 1,000 ML 999 ML IV (21:50)
[2022-03-12 22:57] VITALS: BP 127/85; PULSE 78; RESP 18; O2SAT 97
== END 2022-03-12 22:57 | disposition home or self-care (01) ==
PROVIDERS: Emergency Provider Nurse Practitioner Family; PCP Family Medicine
DX: K59.00 Constipation, unspecified (principal); Z87.891 Personal history of nicotine dependence
CPT/HCPCS: 74018; 80053; 81001; 83605; 85025; 96361; 96374; 99284; J2405; J7030